=== PATIENT | male | born 2000 | race Caucasian/White ===

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

== ENCOUNTER 2025-02-13 04:39 | Emergency (ER) | payer OTHER ==
[~2025-02-13] VITALS: Ht 175.3 cm; Wt 63.6 kg
[~2025-02-13 04:39] MED LIST: AZIT250T9 PO; IBUP-1554 PO
[2025-02-13 05:23] LABS: PLATELET COUNT (AUTO) 145 K/uL (150-450); RED BLOOD CELL COUNT(AUTO) 4.57 MIL/uL (4.50-5.90); RED CELL DISTRIBUTION WIDTH 13.1 % (11.5-14.5); WHITE BLOOD COUNT (AUTO) 7.4 K/uL (4.5-11.0)
[2025-02-13 05:41] LABS: CALCIUM, TOTAL 9.3 mg/dL (8.8-10.5); CREATININE 0.84 mg/dL (0.60-1.30); GLOMERULAR FILTR. RATE CALC > 60 mL/min (>60); GLUCOSE,RANDOM 101 mg/dL (70-110); SODIUM SERUM 137 mmol/L (136-145); UREA NITROGEN, BLOOD 10 mg/dL (7-18)
[2025-02-13 05:50] LABS: APPEARANCE,URINE CLEAR (CLEAR); GLUCOSE, URINE (UA) NEGATIVE (NEGATIVE); LEUKOCYTE ESTERASE ,URINE NEGATIVE (NEGATIVE); NITRATE,URINE NEGATIVE (NEGATIVE); OCCULT BLOOD,URINE LARGE (NEGATIVE); SPECIFIC GRAVITIY, URINE 1.006 (1.003-1.030)
[2025-02-13 06:03] LABS: SQUAMOUS EPITHELIAL CELL,UR Rare /LPF (None Seen)
[2025-02-13 08:09] VITALS: TEMP 97.8
[2025-02-13 09:02] VITALS: BP 138/89; PULSE 69; RESP 15; O2SAT 99
== END 2025-02-13 09:04 | disposition home or self-care (01) ==
LOC: EMS 04:44
DX: R31.9 Hematuria, unspecified (principal); Z98.890 Other specified postprocedural states; Z79.899 Other long term (current) drug therapy
CPT/HCPCS: 76770; 80048; 81001; 85025; 99284